=== PATIENT | female | born 1955 | race Caucasian/White ===

== ENCOUNTER 2021-08-26 05:20 | Day surgery (SDC) | payer OTHER ==
[~2021-08-26] VITALS: Ht 155 cm; Wt 63.0 kg
[~2021-08-26 05:20] MED LIST: ACETAMINOPHEN500 M1 PO; AIRBORNE ELDER1 EACH PO; ALENDRONATE SOD70 MG PO; ASPIRIN325 MG PO; CERTAGEN1 EACH PO; NORCO 5-325 TA1 EACH PO; NORVASC10 MG PO; OMEPRAZOLE40 MG PO; PERCOCET 5-3251 EACH PO; PRAVASTATIN SOD10 MG PO; PRINIVIL10 MG PO; SINGULAIR10 MG PO; VOLTAREN **OUT50 MG PO; ZYRTEC10 MG PO
[2021-08-26 06:12] LABS: BASOPHIL 0.6 % (0-2); EOSINOPHIL 1.3 % (0-5); HCT 40.1 % (37.0-47.0); HGB 13.6 g/dl (12.5-16.0); LYMPHOCYTE 8.2 % (15-48); MCH 32.2 pg (25.0-31.0); MCHC 33.9 g/dL (32.0-36.0); MCV 94.8 fL (78.0-100.0); MONOCYTE 6.7 % (0-12); MPV 10.3 fL (6.0-9.5); NEUTROPHIL 82.5 % (41-80); NRBC 0; PLT 147 K/uL (150-400); RBC 4.23 M/uL (4.20-5.40); RDW 12.9 % (11.5-14.0); WBC 8.4 K/uL (4.0-10.5)
[2021-08-26] MEDS ORDERED: FEOSOL325 MG PO ×2 (14:57→15:26)
[2021-08-26] MEDS ORDERED: XARELTO10 MG PO ×2 (14:58→15:26)
== END 2021-08-26 17:03 | disposition home or self-care (01) ==
LOC: FAS 05:20 → FMS 08:07 → FAS 12:00
PROVIDERS: Nurse Practitioner Adult Health; Orthopaedic Surgery
DX: M17.11 Unilateral primary osteoarthritis, right knee (principal); E65 Localized adiposity; I10 Essential (primary) hypertension; F17.200 Nicotine dependence, unspecified, uncomplicated; D69.6 Thrombocytopenia, unspecified; Z20.822 Contact with and (suspected) exposure to COVID-19
CPT/HCPCS: 36415; 73560; 85025; 86850; 86900; 86901; 94010; 94762; 97162; 97530-GP; C1713; C1776; J0171; J0697; J1885; J2250; J2270; J2405; J2704; J2795; J3010; J7120

== ENCOUNTER → 2021-12-09 | Day surgery (SDC) | payer OTHER ==
[~2021-12-09] VITALS: Ht 155 cm; Wt 59.4 kg
[~2021-12-09] MED LIST changes: +FEOSOL325 MG PO; +XARELTO10 MG PO
[2021-12-09 13:40] LABS: HCT 40.2 % (37.0-47.0); HGB 13.2 g/dl (12.5-16.0); MCH 29.5 pg (25.0-31.0); MCHC 32.8 g/dL (32.0-36.0); MCV 89.7 fL (78.0-100.0); MPV 10.6 fL (6.0-9.5); RBC 4.48 M/uL (4.20-5.40); RDW 14.3 % (11.5-14.0); WBC 6.1 K/uL (4.0-10.5)
== END | disposition home or self-care (01) ==
LOC: FAS 11:55
PROVIDERS: Anesthesiology
DX: M75.01 Adhesive capsulitis of right shoulder (principal); Z96.651 Presence of right artificial knee joint
CPT/HCPCS: 36415; J2250; J2704; J2795; J7120